=== PATIENT | female | born 1985 | race Hispanic/Latino ===

== ENCOUNTER 2023-09-07 09:22 | Emergency (ER) | payer SELFPAY ==
[2023-09-07] MEDS ORDERED: Ibuprofen 200 MG TAB ONE (10:44)
== END 2023-09-07 10:49 | disposition home or self-care (01) ==
LOC: NAV ERS 09:22
DX: J10.1 Influenza due to other identified influenza virus with other respiratory manifestations (principal)
CPT/HCPCS: 87081; 87430; 87804; 99283